=== PATIENT | male | born 1960 | race Caucasian/White ===

== ENCOUNTER 2022-10-04 14:18 | Emergency (ER) | payer BC ==
[2022-10-04] MEDS ORDERED: Triamcinolone Acetonide 40 MG/ML 1 ML SDV INJECT STA (15:26)
[2022-10-04] MEDS ORDERED: Ketorolac 60 MG/2 ML SDV IM STA (15:26)
[2022-10-04 16:37] VITALS: BP 125/78; PULSE 79
== END 2022-10-04 16:36 | disposition home or self-care (01) ==
LOC: MW.ED 14:18
DX: S39.012A Strain of muscle, fascia and tendon of lower back, initial encounter (principal); I10 Essential (primary) hypertension; Z79.899 Other long term (current) drug therapy; X50.0XXA Overexertion from strenuous movement or load, initial encounter
CPT/HCPCS: 96372; 99283; J1885; J3301